=== PATIENT | female | born 1985 ===

== ENCOUNTER 2021-03-04 17:24 | Inpatient (IN) | payer BC ==
[2021-03-04] MEDS ORDERED: Sodium Chloride 0.9% 10 ML Syringe FLUSH PRN (19:51)
[2021-03-04] MEDS ORDERED: Methylergonovine 0.2 MG/1 ML Amp IM PRN (19:51)
[2021-03-04] MEDS ORDERED: Carboprost Tromethamine 250 MCG/1 ML Amp IM PRN (19:51)
[2021-03-04] MEDS ORDERED: Nalbuphine 10 MG/1 ML Vial IVPUSH PRN (19:51)
[2021-03-04] MEDS ORDERED: Tranexamic Acid 1,000 MG in Sodium Chloride 0.9% 100 ML IV PRN (19:51)
[2021-03-04] MEDS ORDERED: Ondansetron 4 MG/2 ML SDV IVPUSH PRN (19:51)
[2021-03-04] MEDS ORDERED: Water For Irrigation,Sterile 1,000 ML Container IRR PRN (19:51)
[2021-03-04] MEDS ORDERED: Lidocaine 1% 50 ML MDV INJECT PRN (19:51)
[2021-03-04] MEDS ORDERED: Sodium Chloride 0.9% 10 ML SDV IV PRN (19:51)
[2021-03-04] MEDS ORDERED: Misoprostol 200 MCG Tab PO PRN (19:51)
[2021-03-04] MEDS ORDERED: Sodium Chloride 0.9% 2.5 ML Syringe FLUSH PRN (19:51)
[2021-03-04] MEDS ORDERED: Butorphanol 1 MG/ML SDV IVPUSH PRN (19:51)
[2021-03-04] MEDS ORDERED: Terbutaline 1 MG/ML SDV SUBCUT PRN (19:53)
[2021-03-04] MEDS ORDERED: Oxytocin/0.9 % Sodium Chloride 30 UNIT/500 ML BAG IV SCH ×2 (20:00)
[2021-03-04] MEDS: Lactated Ringers 1,000 ML IV SCH ×2 (20:54→21:50)
[2021-03-04] MEDS ORDERED: Ropivacaine HCl/PF 100 ML ONE (21:50)
[2021-03-04] MEDS ORDERED: fentaNYL 100 MCG/2 ML SDV ONE (21:50)
--- NOTE | 2021-03-04 22:30 | PCM.PREANE ---
Preanesthetic Assessment - Procedure Proposed Procedure: TESSA for active labor (term, multip.) - Anesthesia/Transfusion/Family Hx Anesthesia History: Prior Anesthesia Without Reaction (ACL surgery without anesthesia complications. Previous epidurals and a spinal for labor. Epidurals worked partially, no complications.) Family History of Anesthesia Reaction: No Transfusion History: No Prior Transfusion(s) Additional History: discoid lupus, on plaquenil. No flares since started on Rx. - Review of Systems General: No Symptoms Pulmonary: No Symptoms Cardiovascular: No Symptoms Gastrointestinal: No Symptoms Neurological: No Symptoms Other: Reports: None - Physical Assessment NPO Status Date: 03/04/21 NPO Status Time: 20:00 (Last food 1999, clear liquids okay.) Height: 1.7 m Weight: 78.018 kg ASA Class: 2 Mental Status: Alert & Oriented x3 Airway Class: Mallampati = 2 Dentition: Reports: Normal Dentition Thyro-Mental Finger Breadths: 4 Mouth Opening Finger Breadths: 3 ROM/Head Extension: Full Lungs: Normal Respiratory Effort Cardiovascular: Regular Rate, Regular Rhythm - Lab Values: Laboratory Last Values WBC 9.13 K/uL (4.0-11.0) 03/04/21 20:52 RBC 4.45 M/uL (4.30-5.90) 03/04/21 20:52 Hgb 13.2 g/dL (12.0-16.0) 03/04/21 20:52 Hct 39.6 % (36.0-46.0) 03/04/21 20:52 MCV 89.0 fL (80.0-98.0) 03/04/21 20:52 MCH 29.7 pg (27.0-32.0) 03/04/21 20:52 MCHC 33.3 g/dL (31.0-37.0) 03/04/21 20:52 RDW Std Deviation 44.4 fl (28.0-62.0) 03/04/21 20:52 RDW Coeff of Niranjan 14 % (11.0-15.0) 03/04/21 20:52 Plt Count 233 K/uL (150-400) 03/04/21 20:52 MPV 11.60 fL (7.40-12.00) 03/04/21 20:52 Nucleated RBC % 0.0 /100WBC 03/04/21 20:52 Nucleated RBCs # 0 K/uL 03/04/21 20:52 SARS-CoV-2 RNA (CHRISTIANO) NEGATIVE (NEGATIVE) 03/04/21 20:59 Blood Type A POSITIVE 03/04/21 20:52 Antibody Screen NEGATIVE 03/04/21 20:52 - Allergies Allergies/Adverse Reactions: Allergies Allergy/AdvReac Type Severity Reaction Status Date / Time No Known Allergies Allergy Verified 03/04/21 18:05 - Acknowledgements Anesthesia Type Planned: Epidural Pt an Appropriate Candidate for the Planned Anesthesia: Yes Alternatives and Risks of Anesthesia Discussed w Pt/Guardian: Yes Pt/Guardian Understands and Agrees with Anesthesia Plan: Yes Additional Comments: Discussed epidural risks, benefits, procedure, maintenance gtt, 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 All questions answered and concerns addressed, consent signed with RN witness. 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: Musculoskeletal History: Reports: Other (See Below) Other Musculoskeletal History: discoid lupus Psychiatric History: Reports: Anxiety, Depression Immunologic History: Reports: Other (See Below) Other Immunologic History: discoid lupus - Past Surgical History HEENT Surgical History: Reports: None Musculoskeletal Surgical History: Reports: Other (See Below) Other Musculoskeletal Surgeries/Procedures:: left meniscus repair - SUBSTANCE USE Tobacco Use Status *Q: Former Tobacco User Tobacco Use Within Last Twelve Months: Cigarettes Recreational Drug Use History: No - HOME MEDS Home Medications: Home Meds Aspirin [Aspirin EC] 1 tab PO DAILY 03/04/21 [History] Hydroxychloroquine [Plaquenil] 1 tab PO DAILY 03/04/21 [History] Melatonin 1 cap PO DAILY 03/04/21 [History] Vit #76/Iron,Carb/Fa [Pnv 29-1 Tablet] 1 tab PO DAILY 03/04/21 [History] Sertraline HCl [Zoloft] 100 mg PO DAILY 03/04/21 [History] - CURRENT (IN HOUSE) MEDS Current Meds: Current Medications Butorphanol Tartrate (Butorphanol 1 Mg/Ml Sdv) 1 mg IVPUSH Q1H PRN PRN Reason: Pain Last Admin: 03/04/21 20:56 Dose: 1 mg Documented by: Carboprost Tromethamine (Carboprost Tromethamine 250 Mcg/1 Ml Amp) 250 mcg IM ASDIRECTED PRN PRN Reason: Post Hemorrhage Lactated Ringer's (Ringers, Lactated) 1,000 mls @ 150 mls/hr IV ASDIRECTED JACY Last Admin: 03/04/21 21:50 Dose: 999 mls/hr Documented by: Oxytocin/Sodium Chloride (Oxytocin 30 Unit/500 Ml-Ns) 30 unit in 500 mls @ 999 mls/hr IV TITRATE JACY Tranexamic Acid 1,000 mg/ (Sodium Chloride) 110 mls @ 660 mls/hr IV ONETIME PRN PRN Reason: Bleeding Oxytocin/Sodium Chloride (Oxytocin 30 Unit/500 Ml-Ns) 30 unit in 500 mls @ 2 mls/hr IV TITRATE JACY; Protocol Lidocaine HCl (Lidocaine 1% 50 Ml Mdv) 50 ml INJECT ONETIME PRN PRN Reason: Laceration repair Methylergonovine Maleate (Methylergonovine 0.2 Mg/1 Ml Amp) 0.2 mg IM ASDIRECTED PRN PRN Reason: Post Hemorrhage Misoprostol (Misoprostol 200 Mcg Tab) 200 mcg PO ONETIME PRN PRN Reason: Post Hemorrhage Nalbuphine HCl (Nalbuphine 10 Mg/1 Ml Vial) 10 mg IVPUSH Q1H PRN PRN Reason: Pain (severe 7-10) Ondansetron HCl (Ondansetron 4 Mg/2 Ml Sdv) 4 mg IVPUSH Q6H PRN PRN Reason: Nausea/Vomiting Sodium Chloride (Sodium Chloride 0.9% 10 Ml Syringe) 10 ml FLUSH ASDIRECTED PRN PRN Reason: Keep Vein Open Sodium Chloride (Sodium Chloride 0.9% 2.5 Ml Syringe) 2.5 ml FLUSH ASDIRECTED PRN PRN Reason: Keep Vein Open Sodium Chloride (Sodium Chloride 0.9% 10 Ml Sdv) 10 ml IV ASDIRECTED PRN PRN Reason: IV Use Sterile Water (Water For Irrigation,Sterile 1,000 Ml Container) 1,000 ml IRR ASDIRECTED PRN PRN Reason: delivery Terbutaline Sulfate (Terbutaline 1 Mg/Ml Sdv) 0.25 mg SUBCUT ASDIRECTED PRN PRN Reason: Tacysystole Discontinued Medications Fentanyl (Fentanyl 100 Mcg/2 Ml Sdv) Confirm Administered Dose 200 mcg .ROUTE .[facility] ONE Stop: 03/04/21 21:51 Ropivacaine (Naropin 0.2%) Confirm Administered Dose 100 mls @ as directed .ROUTE .[facility] ONE Stop: 03/04/21 21:51
--- NOTE | 2021-03-04 22:39 | PCM.SN.2 ---
- Free Text/Narrative Note: TESSA for active labor Anesthesia time [id number] 2154- to LDR 5. Labs and chart reviewed. H & P with patient participation. Discussed epidural risks, benefits, procedure, maintenance gtt, and FX ARTIST. All questions answered and concerns addressed. 2156- Consent signed with RN witness. 2158- Sitting position. ASA mon. on, VSS. 2200- Time-out. Mask, hat, sterile gloves. Sterile prep with chlorhexidine, sterile plastic drape. 2204- Lido. 1% 3ml for localization. 2206- Attempt #1 successful at L2-3. KATARINA with saline at 5cm. Catheter threaded to 10cm (no paresthesias). 2207- Negative to aspiration for both CSF and heme, test dose negative (3ml 1.5% lido. with 1:200,000 epinephrine). 2218- Epidural drip started (Ropivicaine 0.2% with 2mcg/ml fentanyl at 8ml/hr, 4ml FX ARTIST option every 10min, max hourly dose 36ml.) Loading dose of remaining 2ml test dose, and 6ml ropiv. 0.2% with 2mcg/ml fentanyl. 2237- Pt reports satisfactory pain control, T7 level achieved.
--- NOTE | 2021-03-05 01:16 | PCM.DEL ---
L & D Note - General Info Date of Service: 03/05/21 Mother's Due Date: 03/11/21 - Delivery Note Labor: Spontaneous, Augmented by Oxytocin Delivery Outcome: Livebirth Presentation: face MA Nuchal Cord: None Anesthesia Type: None Amniotic Fluid Description: Meconium Stained Episiotomy Type: None Laceration: 2nd Degree Suture type: Vicryl Suture size: 3-0 Placenta: Intact, Spontaneous Cord: 3 Vessels (accessory lobe of placenta cord insertion between lobes) Score 1 min: 8 Score 5 min: 9 Delivery Comments (Free Text/Narrative):: Liveborn male face presentation, mentum anterior, 3840 grams. - General Info Date of Service: 03/05/21 - Patient Data Weight - Most Recent: 78.018 kg I&O - Last 24 Hours: Intake & Output 03/04/21 03/04/21 03/05/21 14:59 22:59 06:59 Output Total Balance @ Lab Results Last 24 Hours: Laboratory Results - last 24 hr 03/04/21 03/04/21 03/04/21 Range/Units 20:52 20:52 20:59 WBC 9.13 (4.0-11.0) K/uL RBC 4.45 (4.30-5.90) M/uL Hgb 13.2 (12.0-16.0) g/dL Hct 39.6 (36.0-46.0) % MCV 89.0 (80.0-98.0) fL MCH 29.7 (27.0-32.0) pg MCHC 33.3 (31.0-37.0) g/dL RDW Std Deviation 44.4 (28.0-62.0) fl RDW Coeff of Niranjan 14 (11.0-15.0) % Plt Count 233 (150-400) K/uL MPV 11.60 (7.40-12.00) fL Nucleated RBC % 0.0 /100WBC Nucleated RBCs # 0 K/uL SARS-CoV-2 RNA (CHRISTIANO) NEGATIVE (NEGATIVE) Blood Type A POSITIVE Antibody Screen NEGATIVE Med Orders - Current: Current Medications Butorphanol Tartrate (Butorphanol 1 Mg/Ml Sdv) 1 mg IVPUSH Q1H PRN PRN Reason: Pain Last Admin: 03/04/21 20:56 Dose: 1 mg Documented by: Carboprost Tromethamine (Carboprost Tromethamine 250 Mcg/1 Ml Amp) 250 mcg IM ASDIRECTED PRN PRN Reason: Post Hemorrhage Lactated Ringer's (Ringers, Lactated) 1,000 mls @ 150 mls/hr IV ASDIRECTED JACY Last Admin: 03/04/21 21:50 Dose: 999 mls/hr Documented by: Oxytocin/Sodium Chloride (Oxytocin 30 Unit/500 Ml-Ns) 30 unit in 500 mls @ 999 mls/hr IV TITRATE JACY Tranexamic Acid 1,000 mg/ (Sodium Chloride) 110 mls @ 660 mls/hr IV ONETIME PRN PRN Reason: Bleeding Oxytocin/Sodium Chloride (Oxytocin 30 Unit/500 Ml-Ns) 30 unit in 500 mls @ 2 mls/hr IV TITRATE [facility]; Protocol Last Titration: 03/04/21 23:30 Dose: 4 munits/min, 4 mls/hr Documented by: Lidocaine HCl (Lidocaine 1% 50 Ml Mdv) 50 ml INJECT ONETIME PRN PRN Reason: Laceration repair Methylergonovine Maleate (Methylergonovine 0.2 Mg/1 Ml Amp) 0.2 mg IM ASDIRECTED PRN PRN Reason: Post Hemorrhage Misoprostol (Misoprostol 200 Mcg Tab) 200 mcg PO ONETIME PRN PRN Reason: Post Hemorrhage Nalbuphine HCl (Nalbuphine 10 Mg/1 Ml Vial) 10 mg IVPUSH Q1H PRN PRN Reason: Pain (severe 7-10) Ondansetron HCl (Ondansetron 4 Mg/2 Ml Sdv) 4 mg IVPUSH Q6H PRN PRN Reason: Nausea/Vomiting Sodium Chloride (Sodium Chloride 0.9% 10 Ml Syringe) 10 ml FLUSH ASDIRECTED PRN PRN Reason: Keep Vein Open Sodium Chloride (Sodium Chloride 0.9% 2.5 Ml Syringe) 2.5 ml FLUSH ASDIRECTED PRN PRN Reason: Keep Vein Open Sodium Chloride (Sodium Chloride 0.9% 10 Ml Sdv) 10 ml IV ASDIRECTED PRN PRN Reason: IV Use Sterile Water (Water For Irrigation,Sterile 1,000 Ml Container) 1,000 ml IRR ASDIRECTED PRN PRN Reason: delivery Terbutaline Sulfate (Terbutaline 1 Mg/Ml Sdv) 0.25 mg SUBCUT ASDIRECTED PRN PRN Reason: Tacysystole Discontinued Medications Fentanyl (Fentanyl 100 Mcg/2 Ml Sdv) Confirm Administered Dose 200 mcg .ROUTE .[facility] ONE Stop: 03/04/21 21:51 Ropivacaine (Naropin 0.2%) Confirm Administered Dose 100 mls @ as directed .ROUTE .[facility] ONE Stop: 03/04/21 21:51 - Exam Urinary Catheter Total Time: 0Days 0Hours - Problem List & Annotations (1) Vaginal delivery SNOMED Code(s): 263047612 Code(s): O80 - ENCOUNTER FOR FULL-TERM UNCOMPLICATED DELIVERY Status: Acute Current Visit: Yes - Problem List Review Problem List Initiated/Reviewed/Updated: Yes - My Orders Last 24 Hours: My Active Orders 03/04/21 18:12 Non Stress Test [RC] PER UNIT ROUTINE Up ad Anneliese [RC] ASDIRECTED Vaginal Exam [RC] Click to Edit Vital Signs [RC] PER UNIT ROUTINE Resuscitation Status Routine 03/04/21 19:51 Patient Status [ADT] Routine Heart Tones [RC] CONTINUOUS May Shower [RC] ASDIRECTED Notify Provider [RC] PRN Butorphanol [Stadol] 1 mg IVPUSH Q1H PRN Carboprost Tromethamine [Hemabate DS] 250 mcg IM ASDIRECTED PRN Lidocaine 1% [Xylocaine 1%] 50 ml INJECT ONETIME PRN Methylergonovine [Methergine] 0.2 mg IM ASDIRECTED PRN Nalbuphine [Nubain] 10 mg IVPUSH Q1H PRN Ondansetron [Zofran] 4 mg IVPUSH Q6H PRN Sodium Chloride 0.9% [Normal Saline] 10 ml IV ASDIRECTED PRN Sodium Chloride 0.9% [Saline Flush] 10 ml FLUSH ASDIRECTED PRN Sodium Chloride 0.9% [Saline Flush] 2.5 ml FLUSH ASDIRECTED PRN Tranexamic Acid [Cyklokapron] 1,000 mg Sodium Chloride 0.9% [Normal Saline] 100 ml IV ONETIME Water For Irrigation,Sterile [Sterile Water for Irrigation] 1,000 ml IRR ASDIRECTED PRN miSOPROStoL [Cytotec] 200 mcg PO ONETIME PRN Scalp Electrode [WOMSER] Per Unit Routine Peripheral IV Insertion Adult [OM.PC] Routine 03/04/21 19:53 Bedrest Bathroom Privileges [RC] ASDIRECTED Communication Order [RC] ASDIRECTED Communication Order [RC] ASDIRECTED Notify Provider [RC] PRN Notify Provider [RC] STAT Oxygen Therapy [RC] ASDIRECTED Vital Signs [RC] PER UNIT ROUTINE Terbutaline [Brethine] 0.25 mg SUBCUT ASDIRECTED PRN 03/04/21 20:00 Lactated Ringers [Ringers, Lactated] 1,000 ml IV ASDIRECTED Oxytocin/0.9 % Sodium Chloride [Oxytocin 30 Unit/500 ML-NS] 30 unit in 500 ml IV TITRATE Oxytocin/0.9 % Sodium Chloride [Oxytocin 30 Unit/500 ML-NS] 30 unit in 500 ml IV TITRATE Medication Administration Instruction [OM.PC] Q3H 03/04/21 20:52 RPR (SYPHILIS SERO) W/ RFLX [REF] Routine
[2021-03-05] MEDS ORDERED: Ibuprofen 400 MG Tab PO PRN (01:18)
[2021-03-05] MEDS ORDERED: Methylergonovine 0.2 MG/1 ML Amp IM PRN (01:18)
[2021-03-05] MEDS ORDERED: Acetaminophen 500 MG Tab PO PRN ×2 (01:18)
[2021-03-05] MEDS ORDERED: Bisacodyl 10 MG Supp RECTAL PRN (01:18)
[2021-03-05] MEDS ORDERED: Docusate Sodium 100 MG Cap PO PRN (01:18)
[2021-03-05] MEDS ORDERED: Benzocaine/Menthol 20%-0.5% Spray 78 GM Cannister TOP PRN (01:18)
[2021-03-05] MEDS ORDERED: Lanolin 100% Cream 7 GM Tube TOP PRN (01:18)
[2021-03-05] MEDS ORDERED: Witch Hazel Medicated Pads 40/Jar TOP PRN (01:18)
--- NOTE | 2021-03-05 02:06 | OR ---
SURGEON: Margarita Hung M.D. DATE OF PROCEDURE: 03/05/2021 PREOPERATIVE DIAGNOSES: A 39-week intrauterine , active spontaneous labor. POSTOPERATIVE DIAGNOSIS: A 39-week intrauterine , active spontaneous labor. PROCEDURES: Pitocin augmentation of labor, term spontaneous vaginal delivery, and repair of second-degree laceration. ANESTHESIA: Epidural. ESTIMATED BLOOD LOSS: Less than 200 mL. FINDINGS: Live born male, scores of 8 and 9, weighing 3870 g, delivered in face presentation mentum anterior. Placenta was spontaneous, Schultze intact with 3 vessels with accessory lobe. Cord insertion was noted to be between the 2 lobes. There was a small second-degree perineal laceration was repaired. COMPLICATIONS: None known. DISPOSITION: Mother and baby in LDR in good condition. BRIEF HISTORY: This is a 35-year-old female, G2, P1-0-0-1. She presents in prodromal labor. She was observed over several hours and progressed to 5 cm. At which time, she received an epidural and was admitted for labor and she then received Pitocin and progressed to approximately 8 cm and she then had decelerations, spontaneous rupture of membranes with meconium-stained fluid and therefore, the Pitocin was discontinued. She continued to progress to complete. At this time, it was found that the fetus was in the face presentation, mentum anterior, but at a +3 station. Therefore, the patient was allowed to push. DESCRIPTION OF PROCEDURE: With the patient in dorsal lithotomy position, the patient pushed over 3 contractions to a 5+ station. At which time, the head was delivered spontaneously and atraumatically over the perineum with support. The head was then allowed to restitute with subsequent delivery of the 's shoulders and body with the right shoulder being anterior without any difficulty. The was bulb suctioned by nose and mouth and after 1.5 minutes, the cord was doubly clamped and cut, and the infant handed to the mother in the presence of the nurse attending delivery. The infant is a liveborn male, scores of 8 and 9, weighing 3870 g. Cord blood was collected for cord ABGs as well as routine cord blood sampling. Pitocin was initiated after delivery of the to assist with delivery of the placenta which was delivered spontaneously, Schultze intact with 3 vessels. Upon inspection of pelvis and perineum, there were no periurethral, vaginal sidewall, cervical or rectal lacerations. There was a small second-degree perineal laceration that was repaired with a running locked suture of 3-0 Vicryl for the vaginal mucosa, deep running suture of the same for the perineum, and a subcuticular suture of the same for the skin. Final sponge, needle, and instrument counts were correct. There were no complications. Mother and baby remained in LDR in good condition. JAVIER / LATASHA /[id number]
--- NOTE | 2021-03-05 08:35 | PCM48HPAN ---
Post Anesthesia Note - EVALUATION WITHIN 48HRS OF ANESTHETIC Vital Signs in Normal Range: Yes Patient Participated in Evaluation: Yes Respiratory Function Stable: Yes Airway Patent: Yes Cardiovascular Function Stable: Yes Hydration Status Stable: Yes Pain Control Satisfactory: Yes Nausea and Vomiting Control Satisfactory: Yes Mental Status Recovered: Yes Vital Signs: Last Vital Signs Temp 97 F 03/05/21 06:06 Pulse 81 03/05/21 06:06 Resp 16 03/05/21 06:06 BP 111/69 03/05/21 06:06 Pulse Ox 98 03/05/21 06:06 - COMMENTS/OBSERVATIONS Free Text/Narrative:: no anesthesia issues
[2021-03-05] MEDS: Ibuprofen 800 MG Tab PO PRN ×3 (08:58→22:21)
[2021-03-05] MEDS: Sertraline 100 MG Tab PO SCH (08:59)
[2021-03-05] MEDS ORDERED: Melatonin 3 MG Tab PO SCH ×2 (09:00→21:00)
[2021-03-05] MEDS: Prenatal Multivitamin with Calcium/Folic Acid/Iron Tab PO SCH (11:43)
[2021-03-05] MEDS: Hydroxychloroquine 200 MG Tab PO SCH (11:43)
[2021-03-06] MEDS: Ibuprofen 800 MG Tab PO PRN ×2 (05:14→11:34)
--- NOTE | 2021-03-06 08:24 | PCM.PNPP ---
- General Info Date of Service: 03/06/21 Subjective Update: Doing well today. Baby cluster feeding, but latching well. Functional Status: Reports: Pain Controlled, Tolerating Diet, Ambulating, Urinating - Review of Systems General: Reports: No Symptoms HEENT: Reports: No Symptoms Pulmonary: Reports: No Symptoms Cardiovascular: Reports: No Symptoms Gastrointestinal: Reports: No Symptoms Genitourinary: Reports: No Symptoms Musculoskeletal: Reports: No Symptoms Skin: Reports: No Symptoms Neurological: Reports: No Symptoms Psychiatric: Reports: No Symptoms - Patient Data Vital Signs - Most Recent: Last Vital Signs Temp 36.4 C 03/06/21 05:05 Pulse 60 03/06/21 05:05 Resp 15 03/06/21 05:05 BP 116/75 03/06/21 05:05 Pulse Ox 98 03/06/21 05:05 Weight - Most Recent: 78.018 kg Lab Results - Last 24 Hours: Laboratory Results - last 24 hr 03/06/21 Range/Units 06:10 Hgb 11.2 L (12.0-16.0) g/dL Hct 34.1 L (36.0-46.0) % Med Orders - Current: Current Medications Acetaminophen (Acetaminophen 500 Mg Tab) 500 mg PO Q4H PRN PRN Reason: Pain Acetaminophen (Acetaminophen 500 Mg Tab) 1,000 mg PO Q4H PRN PRN Reason: Pain Benzocaine/Menthol (Benzocaine/Menthol 20%-0.5% Thornton 78 Gm Cannister) 78 gm TOP ASDIRECTED PRN PRN Reason: Perineal Comfort Measure Last Admin: 03/05/21 03:18 Dose: 1 can Documented by: Bisacodyl (Bisacodyl 10 Mg Supp) 10 mg RECTAL ONETIME PRN PRN Reason: Constipation Docusate Sodium (Docusate Sodium 100 Mg Cap) 100 mg PO BID PRN PRN Reason: Constipation Emollient Ointment (Lanolin 100% Cream 7 Gm Tube) 0 gm TOP ASDIRECTED PRN PRN Reason: Sore Nipples Last Admin: 03/05/21 11:11 Dose: 7 gm Documented by: Hydroxychloroquine Sulfate (Hydroxychloroquine 200 Mg Tab) 200 mg PO DAILY JACY Last Admin: 03/05/21 11:43 Dose: 200 mg Documented by: Ibuprofen (Ibuprofen 400 Mg Tab) 400 mg PO Q4H PRN PRN Reason: Pain Ibuprofen (Ibuprofen 800 Mg Tab) 800 mg PO Q6H PRN PRN Reason: Pain Last Admin: 03/06/21 05:14 Dose: 800 mg Documented by: Melatonin (Melatonin 3 Mg Tab) 6 mg PO BEDTIME [facility] Last Admin: 03/05/21 22:20 Dose: 6 mg Documented by: Methylergonovine Maleate (Methylergonovine 0.2 Mg/1 Ml Amp) 0.2 mg IM ONETIME PRN PRN Reason: Excessive Vaginal Bleeding Prenat Multivit/Pool Nurse/Iron/Folic Ac ( Multivitamin With Calcium/Folic Acid/Iron Tab) 1 each PO DAILY [facility] Last Admin: 03/05/21 11:43 Dose: 1 each Documented by: Sertraline HCl (Sertraline 100 Mg Tab) 100 mg PO DAILY [facility] Last Admin: 03/05/21 08:59 Dose: 100 mg Documented by: Peyton Ayala (Peyton Ayala Medicated Pads 40/Jar) 1 pad TOP ASDIRECTED PRN PRN Reason: comfort care Last Admin: 03/05/21 03:18 Dose: 1 tub Documented by: Discontinued Medications Butorphanol Tartrate (Butorphanol 1 Mg/Ml Sdv) 1 mg IVPUSH Q1H PRN PRN Reason: Pain Last Admin: 03/04/21 20:56 Dose: 1 mg Documented by: Carboprost Tromethamine (Carboprost Tromethamine 250 Mcg/1 Ml Amp) 250 mcg IM ASDIRECTED PRN PRN Reason: Post Hemorrhage Fentanyl (Fentanyl 100 Mcg/2 Ml Sdv) Confirm Administered Dose 200 mcg .ROUTE .[facility] ONE Stop: 03/04/21 21:51 Last Admin: 03/05/21 02:28 Dose: Not Given Documented by: Lactated Ringer's (Ringers, Lactated) 1,000 mls @ 150 mls/hr IV ASDIRECTED [facility] Last Admin: 03/04/21 21:50 Dose: 999 mls/hr Documented by: Oxytocin/Sodium Chloride (Oxytocin 30 Unit/500 Ml-Ns) 30 unit in 500 mls @ 999 mls/hr IV TITRATE [facility] Tranexamic Acid 1,000 mg/ (Sodium Chloride) 110 mls @ 660 mls/hr IV ONETIME PRN PRN Reason: Bleeding Oxytocin/Sodium Chloride (Oxytocin 30 Unit/500 Ml-Ns) 30 unit in 500 mls @ 2 mls/hr IV TITRATE JACY; Protocol Last Titration: 03/05/21 00:54 Dose: 999 munits/min, 999 mls/hr Documented by: Ropivacaine (Naropin 0.2%) Confirm Administered Dose 100 mls @ as directed .ROUTE .[facility] ONE Stop: 03/04/21 21:51 Last Admin: 03/05/21 02:29 Dose: Not Given Documented by: Lidocaine HCl (Lidocaine 1% 50 Ml Mdv) 50 ml INJECT ONETIME PRN PRN Reason: Laceration repair Melatonin (Melatonin 3 Mg Tab) 5 mg PO DAILY JACY Methylergonovine Maleate (Methylergonovine 0.2 Mg/1 Ml Amp) 0.2 mg IM ASDIRECTED PRN PRN Reason: Post Hemorrhage Misoprostol (Misoprostol 200 Mcg Tab) 200 mcg PO ONETIME PRN PRN Reason: Post Hemorrhage Nalbuphine HCl (Nalbuphine 10 Mg/1 Ml Vial) 10 mg IVPUSH Q1H PRN PRN Reason: Pain (severe 7-10) Ondansetron HCl (Ondansetron 4 Mg/2 Ml Sdv) 4 mg IVPUSH Q6H PRN PRN Reason: Nausea/Vomiting Sodium Chloride (Sodium Chloride 0.9% 10 Ml Syringe) 10 ml FLUSH ASDIRECTED PRN PRN Reason: Keep Vein Open Sodium Chloride (Sodium Chloride 0.9% 2.5 Ml Syringe) 2.5 ml FLUSH ASDIRECTED PRN PRN Reason: Keep Vein Open Sodium Chloride (Sodium Chloride 0.9% 10 Ml Sdv) 10 ml IV ASDIRECTED PRN PRN Reason: IV Use Sterile Water (Water For Irrigation,Sterile 1,000 Ml Container) 1,000 ml IRR ASDIRECTED PRN PRN Reason: delivery Terbutaline Sulfate (Terbutaline 1 Mg/Ml Sdv) 0.25 mg SUBCUT ASDIRECTED PRN PRN Reason: Tacysystole - Interaction Disposition, : [place] in Room with Family Infant Interaction: Holding Infant Infant Feeding: Breastfed ; Nursed Well Support Person: - Recovery Exam Fundal Tone: Firm Fundal Level: 1 Fingerbreadths Below Umbilicus Fundal Placement: Midline Lochia Amount: Scant Lochia Color: Rubra/Red Other Perinuem Description: 2nd degree laceration Bladder Status: Voiding Urinary Elimination: Voided - Exam General: Alert, Oriented Neck: Supple Lungs: Normal Respiratory Effort GI/Abdominal Exam: Soft, Non-Tender, No Distention Extremities: No Pedal Edema Skin: Warm Neurological: No New Focal Deficit Psy/Mental Status: Alert, Normal Affect, Normal Mood - Problem List & Annotations (1) Vaginal delivery SNOMED Code(s): 233317797 Code(s): O80 - ENCOUNTER FOR FULL-TERM UNCOMPLICATED DELIVERY Status: Acute Current Visit: Yes - Problem List Review Problem List Initiated/Reviewed/Updated: Yes - My Orders Last 24 Hours: My Active Orders 03/06/21 08:22 Ready for Discharge [RC] PER UNIT ROUTINE - Assessment Assessment:: 35yo P2 s/p , PPD#1 - Plan Plan:: Continue routine care. Desires discharge home today, reviewed discharge instructions/precautions. Continue .
[2021-03-06] MEDS: Sertraline 100 MG Tab PO SCH (10:36)
[2021-03-06] MEDS: Hydroxychloroquine 200 MG Tab PO SCH (10:36)
[2021-03-06] MEDS: Prenatal Multivitamin with Calcium/Folic Acid/Iron Tab PO SCH (10:36)
== END 2021-03-06 16:00 | disposition home or self-care (01) | DRG 560 ==
LOC: MW.OBCHECK 17:24 → MW.OB 17:24 → MW.OBCHECK 19:51 → MW.OB 19:58 → OBSVTOIN 03-05 01:18 → MW.OB 03-05 03:35
PROVIDERS: ADMIT Obstetrics & Gynecology; ATTEND Obstetrics & Gynecology
PROC: 10E0XZZ Delivery of Products of Conception, External Approach (ICD-10-PCS; principal; 2021-03-05)
PROC: 0KQM0ZZ Repair Perineum Muscle, Open Approach (ICD-10-PCS; 2021-03-05)
PROC: 3E0R3BZ Introduction of Anesthetic Agent into Spinal Canal, Percutaneous Approach (ICD-10-PCS; 2021-03-05)
PROC: 00HU33Z Insertion of Infusion Device into Spinal Canal, Percutaneous Approach (ICD-10-PCS; 2021-03-05)
DX: O77.0 Labor and delivery complicated by meconium in amniotic fluid (principal); Z3A.39 39 weeks gestation of pregnancy; Z37.0 Single live birth; O70.1 Second degree perineal laceration during delivery; Z20.822 Contact with and (suspected) exposure to COVID-19
CPT/HCPCS: 36415; 51702; 59025; 59409; 82803; 85014; 85018; 85027; 86592; 86850; 86900; 86901; 88307; A9270-GY; J0595; J2590; J2795; J3010; J7120; U0002